=== PATIENT | female | born 1945 | race Caucasian/White ===

== ENCOUNTER → 2024-03-23 17:48 | Outpatient (CLI) | payer MEDICARE, OTHER, SELFPAY ==
[2024-03-23 18:45] LABS: Influenza A - CEPHEID Flu A NEGATIVE (NEGATIVE); Influenza B - CEPHEID Flu B NEGATIVE (NEGATIVE); Respiratory Syncytial Virus Negative (Negative)
[2024-03-23 18:54] LABS: COVID-19 CEPHEID 4-PLEX PCR Negative (Negative)
== END ==
PROVIDERS: Visit Provider Physician Assistant Medical
DX: R50.9 Fever, unspecified (principal); J02.9 Acute pharyngitis, unspecified
CPT/HCPCS: 0241U; 87070